=== PATIENT | female | born 1955 | race Caucasian/White ===

== ENCOUNTER → 2016-09-06 | Outpatient (CLI) | payer OTHER ==
[~2016-09-06] MED LIST: ALPR.5T PO; ASP81TEC PO; ATRV10T PO; ESCT10T PO; HYDR-3583 PO; MUPI1OIN5 NS; ZLP5T PO
--- NOTE | 2016-09-07 16:13 | Diagnostic Imaging Report ---
EXAMINATION: Bilateral screening mammogram with a Computer Aided Detection (CAD) system. INDICATION: Screening. PERSONAL HISTORY: No current complaints stated on the questionnaire. COMPARISON: 09/05/2015. FINDINGS: The breasts are composed of heterogeneously dense parenchyma which may decrease mammographic sensitivity. There are post surgical changes seen in the inferior aspect of the right breast with a post operative dense smoothly marginated mass at the lumpectomy site that appears slightly smaller on the current exam, compatible with a chronic seroma. There is no definite mass, architectural distortion, or suspicious cluster of calcifications developing from the prior studies. Benign-appearing calcifications are seen in the left breast. Allowing for technique and positional differences, no suspicious change is seen. IMPRESSION: No significant change. ACR BI-RADS Category 2: Benign findings. Result letter will be mailed to the patient. Note: At least 10% of breast cancer is not imaged by mammography. Dictated by: Dictated on workstation # [id number]
== END ==
LOC: RAD 08:40
PROVIDERS: ATTEND Internal Medicine Hematology & Oncology
DX: Z12.31 Encounter for screening mammogram for malignant neoplasm of breast (principal); Z85.3 Personal history of malignant neoplasm of breast
CPT/HCPCS: 77067

== ENCOUNTER → 2016-10-04 | Outpatient (CLI) | payer OTHER | DX: M85.89 Other specified disorders of bone density and structure, multiple sites (principal); Z82.62 Family history of osteoporosis ==

== ENCOUNTER → 2017-10-01 | Outpatient (CLI) | payer OTHER ==
--- NOTE | 2017-10-01 12:52 | Diagnostic Imaging Report ---
INDICATION: Routine screening. COMPARISON: 09/06/2016 and 09/05/2015. TECHNIQUE: 2D and 3D bilateral screening mammography was performed with CAD. FINDINGS: Post surgical changes in the right breast are again noted. The previously noted smoothly marginated density in the right breast, consistent with a seroma, has largely resolved. There are benign parenchymal and vascular calcifications in both breasts. No discrete mass or malignant appearing microcalcifications are seen. The axillae are unremarkable. IMPRESSION: No mammographic features suspicious for malignancy are identified. ACR BI-RADS Category 2: Benign findings. Result letter will be mailed to the patient. Note: At least 10% of breast cancer is not imaged by mammography. Dictated by: Dictated on workstation # [id number]
== END ==
LOC: RAD 07:28
PROVIDERS: ATTEND Family Medicine
DX: Z12.31 Encounter for screening mammogram for malignant neoplasm of breast (principal)
CPT/HCPCS: 77067

== ENCOUNTER → 2018-07-10 | Outpatient (CLI) | payer OTHER ==
--- NOTE | 2018-07-10 19:11 | Diagnostic Imaging Report ---
INDICATION: Right breast carcinoma, status post lumpectomy. Patient reports some increased dimpling in the post-therapeutic right breast. The study is performed for further evaluation. COMPARISON: Correlation is made with prior mammograms from 10/01/2017 and 09/06/2016. TECHNIQUE: 2D and 3D bilateral diagnostic mammography was performed with computer-aided detection (CAD) system. FINDINGS: Post-therapeutic changes in the right breast are noted. The parenchymal pattern appears to be stable. No definite mass or malignant-appearing microcalcifications are seen. There are benign-appearing parenchymal and vascular calcifications bilaterally. Axillae are unremarkable. IMPRESSION: Stable bilateral mammograms with no mammographic features suspicious for malignancy are identified. Even so, sonographic interrogation of the area of dimpling in the right breast is recommended and will be performed today. ACR BI-RADS Category 0: Incomplete. (Needs additional imaging evaluation). Result letter will be mailed to the patient. Note: At least 10% of breast cancer is not imaged by mammography. Dictated by: Dictated on workstation # [id number]
--- NOTE | 2018-07-10 19:39 | Diagnostic Imaging Report ---
INDICATION: Right breast carcinoma with new dimpling in the right breast. Correlation is made with diagnostic mammogram performed earlier the same day. Comparison is also made with prior right breast ultrasound from 01/14/2014. FINDINGS: Sonographic interrogation of the right breast was performed. Simple-appearing fluid collection at the 12 o'clock location is again seen now measuring 5.0 x 1.3 x 3.4 cm and again most consistent with a seroma. There is an area of somewhat nodular appearing hypoechogenicity just anterior to the seroma at the 12 o'clock location approximately 8 cm from the nipple. This measures approximately 9 mm in diameter and is indeterminate. No other suspicious abnormalities are seen. IMPRESSION: 1. Decrease in size of right breast seroma when compared with ultrasound from January 2014. 2. Hypoechoic nodule at the 12 o'clock location of the right breast 8 cm from the nipple adjacent to the seroma. This is not definitely seen on prior ultrasound. While this could represent an area of scarring, other etiologies such as cancer recurrence cannot be entirely excluded. Tissue sampling would be recommended. Due to the very superficial nature of the nodule, this does make biopsy with ultrasound difficult. This would be amenable to excisional biopsy by general surgery. Surgical consult is recommended. ACR BI-RADS Category 4: Suspicious abnormality. Dictated by: Dictated on workstation # [id number]
== END ==
LOC: RAD 12:33
PROVIDERS: ATTEND Family Medicine
DX: C50.911 Malignant neoplasm of unspecified site of right female breast (principal); M96.843 Postprocedural seroma of a musculoskeletal structure following other procedure; Z98.890 Other specified postprocedural states
CPT/HCPCS: 77066

== ENCOUNTER 2018-07-21 12:06 | Outpatient (CLI) | payer OTHER ==
[~2018-07-21] VITALS: Ht 160 cm; Wt 53.1 kg
[2018-07-21] MEDS ORDERED: ALPR0.5T7 PO (12:22)
[2018-07-21 12:26] VITALS: BP 155/86
== END 2018-07-21 12:25 | disposition home or self-care (01) ==
LOC: PREOP 12:06
PROVIDERS: ATTEND Surgery
DX: Z01.818 Encounter for other preprocedural examination (principal)
CPT/HCPCS: 87081

== ENCOUNTER 2018-07-23 07:30 | Day surgery (SDC) | payer MEDICARE, OTHER ==
[~2018-07-23] VITALS: Ht 160 cm; Wt 53.1 kg
[~2018-07-23 07:30] MED LIST changes: +ALPR0.5T7 PO
[2018-07-23] MEDS ORDERED: LACTATED RINGERS 1,000 ML IV PRN ×2 (07:41→08:32)
[2018-07-23 08:09] VITALS: BP 128/84
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
--- NOTE | 2018-07-23 08:29 | Progress Note-Pre Operative ---
Pre-Operative Progress Note H&P Reviewed The H&P was reviewed, patient examined and no changes noted. Time Seen by Provider: 08:25 Date H&P Reviewed: Jul 23, 2018 Time H&P Reviewed: 08:26 Pre-Operative Diagnosis: right breast mass LOLY MALONEY DO Jul 23, 2018 08:29
[2018-07-23] MEDS ORDERED: BUP/EPI 0.5% 1:200,000 (SENSORCAINE) 30 ML VIAL ONE (08:30)
[2018-07-23] MEDS ORDERED: LIDOCAINE 1% INJ 20 ML 20 ML VIAL ONE (08:30)
[2018-07-23] MEDS ORDERED: LIDOCAINE 1% INJ 20 ML 20 ML VIAL INJ ONE (08:45)
[2018-07-23] MEDS ORDERED: MIDAZOLAM 2 MG/2 ML (VERSED) VIAL IV ONE (08:45)
--- NOTE | 2018-07-23 08:45 | NUR ---
DR. MALONEY ON FLOOR AND INFORMED NOT PROCEEDING WITH SURGERY. PATIENTS IV REMOVED WITH TIP IN TACT. INFORMED PATIENT THEY WOULD SEE HIM IN THREE MONTHS AND WOULD HAVE OFFICE CONTACT PATIENT.
== END 2018-07-23 09:11 | disposition home or self-care (01) ==
LOC: SDC 07:30
PROVIDERS: ATTEND Surgery
DX: N63.12 Unspecified lump in the right breast, upper inner quadrant (principal); N64.52 Nipple discharge; Z86.000 Personal history of in-situ neoplasm of breast; F41.9 Anxiety disorder, unspecified; F32.9 Major depressive disorder, single episode, unspecified; Z79.899 Other long term (current) drug therapy; Z53.9 Procedure and treatment not carried out, unspecified reason
CPT/HCPCS: 19285; 76942